=== PATIENT | female | born 1970 | race Caucasian/White ===

== ENCOUNTER → 2017-01-05 | Outpatient (CLI) | payer OTHER ==
[~2017-01-05] MED LIST: ASEN1SUB SL; BUPR-79 PO; DOXY100T; GABA-1218 PO; LAMO150T32 PO; SNG10 PO; SPIR50TA2 PO
[2017-01-05 11:24] LABS: BLOOD UREA NITROGEN 7 mg/dl (7-18); CALCIUM 8.7 mg/dl (8.5-10.1); CARBON DIOXIDE 28 mmol/L (21-32); CHLORIDE 106 mmol/L (98-107); CREATININE 0.73 mg/dl (0.60-1.20); GLUCOSE 86 mg/dl (70-99); POTASSIUM 4.2 mmol/L (3.5-5.1); SODIUM 141 mmol/L (136-145)
== END | disposition home or self-care (01) ==
LOC: C.LAB 09:58
PROVIDERS: ATTEND Family Medicine
DX: L70.9 Acne, unspecified (principal); R30.0 Dysuria

== ENCOUNTER → 2017-12-24 | Outpatient (CLI) | payer OTHER ==
[~2017-12-24] MED LIST changes: +LAMO150T PO; -LAMO150T32 PO
== END | disposition home or self-care (01) ==
LOC: C.LABSPEC 17:09
PROVIDERS: ATTEND Physician Assistant
DX: R10.2 Pelvic and perineal pain (principal)

== ENCOUNTER 2019-02-06 07:16 | Observation (INO) ==
--- NOTE | 2019-01-12 08:59 | Anesthesiology Consultation ---
Date of Service January 12, 2019 History Surgery Operation Date: 02/06/19 07:30 Proposed Procedures p Robotic Total Laparoscopy Hysterectomy - Carlos Caballero MD Height/Weight Height: 5 ft 4.5 in Weight: 79.379 kg Allergies Allergy/AdvReac Type Severity Reaction Status Date / Time No Known Allergies Allergy Unknown Verified 12/23/18 16:25 Medications Home Medications Medication Instructions Recorded Confirmed Last Taken albuterol sulfate 1 puff INHALATION Q6H PRN 12/23/18 12/23/18 Unknown clonazepam [Klonopin] 0.5 mg PO TID PRN 12/23/18 12/23/18 Unknown doxycycline hyclate 100 mg PO BID 12/23/18 12/23/18 Unknown lamotrigine 200 mg PO HS 12/23/18 12/23/18 Unknown montelukast 10 mg PO PM 12/23/18 12/23/18 Unknown ranitidine HCl 150 mg PO BID 12/23/18 12/23/18 Unknown valacyclovir 500 mg PO HS 12/23/18 12/23/18 Unknown Past Medical History Medical History Anxiety Bipolar disorder Cardiac murmur NO PROBLEMS Chiari malformation TYPE 1 S/P REPAIR (2006); SUBSEQUENT LIMITED NECK EXTENSION GERD (gastroesophageal reflux disease) HSV-2 infection Post traumatic stress disorder Past Family History Family History Other No pertinent family history Past Surgical History Surgical History History of bilateral tubal ligation History of section X1 History of craniotomy POSTERIOR FOSSA CRANIECTOMY, C1 LAMINECTOMY, DYRAPLASTY, MICRODISSECTION, R/T CHIARI MALFORMATION (2006) History of laparoscopy Nausea and vomiting after administration of anesthetic agent Social History Smoking Status: Current every day smoker tobacco type: cigarettes Smoking cigarettes per day: 5-6 CIG DAILY Do You Dip or Chew Tobacco: No Hx Alcohol Use: Yes Alcohol type: beer and wine alcohol intake frequency: 0-2 drinks per day Hx Substance Use: No substance use type: does not use
--- NOTE | 2019-01-12 15:58 | Anesthesiology Consultation ---
Date of Service January 12, 2019 Assessment & Plan (1) Encounter for pre-operative examination: - Check test AM DOS - Possible difficult intubation 2/2 decreased cervical extension s/p Chiari Malformation repair (2006). Chart Review Chart Review: Acceptable Risk for Surgery and Patient seen in Pre Admission Testing Teaching & Discussion Pre-Anesthesia Teaching/Discussion Notes: Instructed NPO after midnight before surgery,except medications with 15 cc of water. Medication instructions provided according to the PAT guidelines. History Surgery Operation Date: 02/06/19 07:30 Proposed Procedures p Robotic Total Laparoscopy Hysterectomy - Carlos Caballero MD Height/Weight Height: 5 ft 4.5 in Weight: 81.1 kg Allergies Allergy/AdvReac Type Severity Reaction Status Date / Time No Known Allergies Allergy Unknown Verified 12/23/18 16:25 Medications Home Medications Medication Instructions Recorded Confirmed Last Taken albuterol sulfate 1 puff INHALATION Q6H PRN 12/23/18 12/23/18 Unknown clonazepam [Klonopin] 0.5 mg PO TID PRN 12/23/18 12/23/18 Unknown doxycycline hyclate 100 mg PO BID 12/23/18 12/23/18 Unknown lamotrigine 200 mg PO HS 12/23/18 12/23/18 Unknown montelukast 10 mg PO PM 12/23/18 12/23/18 Unknown ranitidine HCl 150 mg PO BID 12/23/18 12/23/18 Unknown valacyclovir 500 mg PO HS 12/23/18 12/23/18 Unknown Past Medical History Medical History Acne ON DOXYCYCLINE Anxiety Asthma EXERCISE INDUCED- RARE INHALER USE PRN Bipolar disorder Chiari malformation TYPE 1 S/P REPAIR (2006); SUBSEQUENT LIMITED NECK EXTENSION GERD (gastroesophageal reflux disease) CONTROLLED HSV-2 infection ON VALACYCLOVIR Post traumatic stress disorder Exercise / Class Metabolic Activity III < 4 Walking/Shop/Light housework Past Family History Family History Other No pertinent family history Past Surgical History Surgical History History of bilateral tubal ligation History of section X1 History of craniotomy POSTERIOR FOSSA CRANIECTOMY, C1 LAMINECTOMY, DYRAPLASTY, MICRODISSECTION, R/T CHIARI MALFORMATION (2006) History of laparoscopy Past Anesthesia History No Hx of Anesthesia Complications and No Family Hx of Anesthesia Complications History of PONV No Hx of PONV and Hx of Motion Sickness (OCCASIONAL) Social History Smoking Status: Current every day smoker tobacco type: cigarettes Smoking cigarettes per day: 5-6 CIGARETTES DAILY; INTERMITTENT USE X 20+ YEARS Do You Dip or Chew Tobacco: No Hx Alcohol Use: Yes Alcohol type: beer and wine alcohol intake frequency: a few times a week Hx Substance Use: No substance use type: does not use Review of Systems Patient denies chest pain, shortness of breath, cough, wheezing, palpitations. Physical Exam Vital Signs VITALS BP 114/79 P 74 TEMP 98.3 SP02 99%RA RESP 18 PHYSICAL Decreased cervical extension s/p cervical surgery (Chiari Malformation repair) Full TMJ range of motion. TMD 3.5 finger breaths Mallampati Score 2 Dentition: missing molars, several crowns Lungs: clear throughout to auscultation Cardiac: regular rate and rhythm, no murmurs noted Spine: normal Carotid arteries: negative bruit Extremities: no edema Testing Stress Test Date: 05/13/11 Type: exercise "Normal" stress ECHO/EKG at 105% MPHR. 10.10 METS. EF 55-60%. No significant valvular disease. Laboratory Results 01/12/19 16:18 Blood Type A Positive 01/12/19 16:18 Antibody Screen NEGATIVE 01/12/19 16:18 12/08/18 SODIUM 140 POTASSIUM 4.2 CHLORIDE 109 CO2 27 BUN 11 CREATININE 0.68 GLUCOSE 86
--- NOTE | 2019-01-12 16:15 | PAT Medication Instructions ---
Medication Instructions Date of Service January 12, 2019 Home Medications albuterol sulfate 1 puff INHALATION Q6H PRN clonazepam [Klonopin] 0.5 mg PO TID PRN doxycycline hyclate 100 mg PO BID lamotrigine 200 mg PO HS montelukast 10 mg PO PM ranitidine HCl 150 mg PO BID valacyclovir 500 mg PO HS DO NOT take the morning of surgery ranitidine HCl 150 mg PO BID Take morning of surgery With a small sip of water, OTHERWISE NOTHING TO EAT OR DRINK AFTER MIDNIGHT: albuterol sulfate 1 puff INHALATION Q6H PRN (use if needed; please bring with you to hospital day of surgery if possible) clonazepam [Klonopin] 0.5 mg PO TID PRN (if needed) doxycycline hyclate 100 mg PO BID Take evening before surgery albuterol sulfate 1 puff INHALATION Q6H PRN (if needed) clonazepam [Klonopin] 0.5 mg PO TID PRN (if needed) doxycycline hyclate 100 mg PO BID lamotrigine 200 mg PO HS montelukast 10 mg PO PM ranitidine HCl 150 mg PO BID valacyclovir 500 mg PO HS Other Notes If you have any questions please call us at [phone] or [phone] or [phone] or [phone]
[2019-01-12 16:30] LABS: Basophils # (auto) 0.01 K/uL (0-0.2); Basophils % (auto) 0.1 %; Eosinophils % (auto) 1.3 %; Hematocrit (blood only) 34.5 % (37-47); Hemoglobin 11.8 g/dL (12.0-16.0); Immature Granulocytes # (auto) 0.01 K/uL (0.00-0.02); Immature Granulocytes % (auto) 0.1 %; Lymphocytes # (auto) 2.49 K/uL (1.2-3.4); Lymphocytes % (auto) 32.1 %; Mean Corpuscular Hgb Conc 34.2 g/dL (32-36); Mean Corpuscular Volume 88.9 fL (80-100); Mean Platelet Volume 10.6 fL (7.4-10.4); Monocytes # (auto) 0.55 K/uL (0.11-0.59); Monocytes % (auto) 7.1 %; Neutrophils # (auto) 4.59 K/uL (1.4-6.5); Neutrophils % (auto) 59.3 %; Platelet Count 235 K/uL (130-400); RDW Coefficient of Variation 13.3 % (11.5-14.5); RDW Standard Deviation 43.4 fL (36.4-46.3); Red Blood Count 3.88 M/uL (4.2-5.4); White Blood Count 7.75 K/uL (4.8-10.8)
[~2019-02-06 07:16] MED LIST changes: -ASEN1SUB SL; +BUPIVACAINE 0.5 % 5 MG/1 ML MPF 30ML VIAL ONE; -BUPR-79 PO; +CEFAZOLIN 2000MG 2,000 MG/15 ML SYR IV SCH; -DOXY100T; -GABA-1218 PO; +LACTATED RINGER'S 1,000 ML IV SCH; -LAMO150T PO; +LR 15ML/HR IV SCH; +PHENAZOPYRIDINE HCL 100 MG TAB PO SCH; -SNG10 PO; -SPIR50TA2 PO
[2019-02-06] MEDS ORDERED: ROCURONIUM BROMIDE 10 MG/ML 5 ML VIAL ONE (08:00)
[2019-02-06] MEDS ORDERED: LIDOCAINE HCL 2% 2 ML VIAL/AMP(20MG/ML) INFIL ONE (08:00)
[2019-02-06] MEDS ORDERED: PROPOFOL IV EMULSION 10 MG/ML 20 ML VIAL IV ONE (08:00)
[2019-02-06] MEDS ORDERED: fentaNYL citrate 100 MCG/2 ML VIAL ONE (08:00)
[2019-02-06] MEDS ORDERED: MIDAZOLAM HCL 1 MG/ML 2ML VIAL ONE (08:00)
[2019-02-06] MEDS ORDERED: ACETAMINOPHEN 1000 MG/100 ML IV IV ONE (08:04)
[2019-02-06] MEDS ORDERED: ePHEDrine sulfate 50 MG/ML AMP IV PRN (08:54)
[2019-02-06] MEDS ORDERED: ATROPINE SULFATE 0.1 MG/ML 10ML SYR IV PRN (08:54)
--- NOTE | 2019-02-06 08:55 | History & Physical Bridge Note ---
Date of Service February 06, 2019 History & Physical Bridge Note I have examined the patient, reviewed the History & Physical and in the interval since the performance of the History & Physical I have noted the following changes of clinical significance: no changes noted
[2019-02-06] MEDS ORDERED: HYDROmorphone INJ 2 MG/ML SYR/VIAL ONE (10:04)
[2019-02-06] MEDS ORDERED: ONDANSETRON INJ 2 MG/ML 2 ML VIAL ONE (10:08)
[2019-02-06] MEDS ORDERED: DEXAMETHASONE SOD INJ 4 MG/ML VIAL ONE (10:08)
[2019-02-06] MEDS ORDERED: ALBUMIN HUMAN 5% 12.5 GM/250 ML VIAL IV ONE (10:58)
[2019-02-06] MEDS ORDERED: TISSEEL FIBRIN SEALANT 10ML TOP ONE (11:26)
[2019-02-06] MEDS ORDERED: GLYCOPYRROLATE 0.2 MG/ML VIAL ONE (11:51)
[2019-02-06] MEDS ORDERED: NEOSTIGMINE METHYLSULFATE 5 MG/5 ML SYR ONE ×2 (11:51)
[2019-02-06] MEDS ORDERED: SIMETHICONE 80 MG CHEW PO PRN (11:57)
[2019-02-06] MEDS ORDERED: PROMETHAZINE HCL 12.5 MG in SODIUM CHLORIDE 0.9% 50 ML IV PRN (11:57)
[2019-02-06] MEDS ORDERED: ACETAMINOPHEN 325 MG TAB PO PRN (11:57)
[2019-02-06] MEDS ORDERED: ONDANSETRON INJ 2 MG/ML 2 ML VIAL IV PRN (11:57)
[2019-02-06] MEDS ORDERED: KETOROLAC 30 MG/ML VIAL IV PRN (11:57)
[2019-02-06] MEDS ORDERED: BISACODYL 10 MG SUPP PR PRN (11:57)
--- NOTE | 2019-02-06 12:00 | Post Operative Brief Note ---
Immediate Post Op Note v1 Date of Surgery February 06, 2019 Pre & Post Diagnosis Operation Date: 02/06/19 08:55 Pre-Op Diagnosis: Abnormal Uterine Bleeding Post-Op Diagnosis: Abnormal Uterine Bleeding Procedure Operation Date: 02/06/19 08:55 Actual Procedures p Robotic Total Laparoscopy Hysterectomy, Bilateral Salpingo-oopherectomy, Cystoscopy(Bilateral) - Carlos Caballero MD Surgeon Carlos Caballero MD Hide Selector None Estimated Blood Loss 550 Findings Consistent with Post-Op Diagnosis Drains Briscoe Catheter
[2019-02-06 12:24] LABS: Hematocrit (blood only) 32.3 % (37-47); Mean Platelet Volume 10.4 fL (7.4-10.4); Platelet Count 206 K/uL (130-400); RDW Coefficient of Variation 13.2 % (11.5-14.5); Red Blood Count 3.55 M/uL (4.2-5.4)
[2019-02-06 12:27] LABS: Mean Corpuscular Hgb Conc 34.1 g/dL (32-36)
[2019-02-06] MEDS ORDERED: PHENYLEPHRINE HCL 10 MG/ML VIAL ONE (12:30)
[2019-02-06] MEDS ORDERED: PROMETHAZINE HCL 6.25 MG in SODIUM CHLORIDE 0.9% 50 ML IV STA (12:58)
[2019-02-06] MEDS: HYDROmorphone INJ 1 MG/ML SYRINGE IV PRN ×2 (13:13→13:27)
--- NOTE | 2019-02-06 15:02 | Anesthesiology Progress Note ---
Date of Service February 06, 2019 Anesthesia Post Procedure Vital Signs Vital Signs: Temp Pulse Resp BP Pulse Ox 02/06/19 14:35 36.4 C L 88 16 103/66 100 02/06/19 14:25 36.4 C L 89 16 109/63 99 02/06/19 14:15 36.4 C L 89 16 110/77 99 02/06/19 14:05 36.4 C L 95 H 16 105/58 L 100 02/06/19 13:55 36.4 C L 102 H 16 105/68 99 02/06/19 13:45 36.4 C L 85 16 95/73 L 99 02/06/19 13:35 89 16 98/68 L 97 02/06/19 13:25 84 15 105/66 99 02/06/19 13:15 86 13 118/64 97 02/06/19 13:05 36.4 C L 82 16 108/73 100 02/06/19 12:55 76 19 118/68 97 02/06/19 12:45 75 14 114/59 L 100 02/06/19 12:35 79 11 L 86/63 L 99 02/06/19 12:25 72 9 L 97/60 L 100 02/06/19 12:18 36.5 C 63 20 89/48 L 98 02/06/19 07:44 36.8 C 85 16 123/75 97 Pain Intensity Pelvic: Pain Intensity: 2 Transfer of Care Handoff Completed per policy Notes Mental Status: alert / awake / arousable Patient Amnestic to Procedure: Yes Nausea / Vomiting: adequately controlled Pain: adequately controlled Airway Patency, RR, SpO2: stable & adequate BP & HR: stable & adequate Hydration State: stable & adequate Anesthetic Complications: no major complications apparent and Pt Satisfied with anesthetic care
[2019-02-06] MEDS: OXYCODONE/ACETAMINOPHEN 5mg/325mg TAB PO PRN ×2 (17:11→21:17)
[2019-02-06 20:01] LABS: Hematocrit (blood only) 28.5 % (37-47); Hemoglobin 9.5 g/dL (12.0-16.0); Mean Corpuscular Volume 90.8 fL (80-100); Mean Platelet Volume 10.3 fL (7.4-10.4); Platelet Count 192 K/uL (130-400); RDW Coefficient of Variation 13.2 % (11.5-14.5); RDW Standard Deviation 43.9 fL (36.4-46.3); Red Blood Count 3.14 M/uL (4.2-5.4); White Blood Count 10.16 K/uL (4.8-10.8)
[2019-02-06 20:28] LABS: Mean Corpuscular Hgb Conc 33.3 g/dL (32-36)
[2019-02-06] MEDS: DOCUSATE SODIUM 100 MG CAP PO SCH (20:41)
[2019-02-07] MEDS: OXYCODONE/ACETAMINOPHEN 5mg/325mg TAB PO PRN ×2 (01:19→07:55)
[2019-02-07 07:29] LABS: Basophils # (auto) 0.01 K/uL (0-0.2); Basophils % (auto) 0.1 %; Hematocrit (blood only) 25.8 % (37-47); Hemoglobin 8.8 g/dL (12.0-16.0); Immature Granulocytes # (auto) 0.02 K/uL (0.00-0.02); Immature Granulocytes % (auto) 0.2 %; Lymphocytes # (auto) 1.46 K/uL (1.2-3.4); Lymphocytes % (auto) 12.9 %; Mean Corpuscular Hgb Conc 34.1 g/dL (32-36); Mean Corpuscular Volume 91.5 fL (80-100); Mean Platelet Volume 10.5 fL (7.4-10.4); Monocytes % (auto) 10.6 %; Neutrophils # (auto) 8.63 K/uL (1.4-6.5); Neutrophils % (auto) 76.2 %; Platelet Count 215 K/uL (130-400); RDW Coefficient of Variation 13.3 % (11.5-14.5); RDW Standard Deviation 44.6 fL (36.4-46.3); Red Blood Count 2.82 M/uL (4.2-5.4); White Blood Count 11.32 K/uL (4.8-10.8)
[2019-02-07 07:59] LABS: BUN Creatinine Ratio 15.5 (10-20); Calcium 8.4 mg/dl (8.5-10.1); Creatinine Clr Calc Pharmacy 114.4 ml/min; Est GFR (African American) 121.7; Potassium 3.9 mmol/L (3.5-5.1)
--- NOTE | 2019-02-07 09:01 | Gynecologic Progress Note ---
Date of Service February 07, 2019 Assessment & Plan (1) Encounter for pre-operative examination: 48yo S/P TLH, BSO, cystoscopy. - Doing well today. Meeting post operative goals. Stable for discharge Subjective Doing well. Meeting postop goals Physical Exam Gastrointestinal (Abdomen): normal bowel sounds, soft, nontender, no hepatosplenomegaly Inspection/Auscultation: abdomen normal to inspection Percussion/Palpation: abdomen soft; abdomen nontender, no guarding and abdomen not rigid Results & Data Vital Signs (Past 12 Hours) Vital Signs Temp Pulse Pulse Resp BP Pulse Ox 02/07/19 03:10 36.8 C 86 18 93/55 L 94 02/06/19 23:40 36.9 C 106 H 18 104/65 97
[2019-02-07] MEDS: DOCUSATE SODIUM 100 MG CAP PO SCH (10:14)
--- NOTE | 2019-02-10 15:35 | Operative Report ---
DATE OF OPERATION: 02/06/2019 PROCEDURES: Robotic-assisted total laparoscopic hysterectomy, bilateral salpingo-oophorectomy and cystoscopy, lysis of adhesions greater than 30 minutes. SURGEON: Carlos Caballero MD PREOPERATIVE DIAGNOSES: 1. Dysfunctional uterine bleeding. 2. Chronic pelvic pain. 3. Enlarged fibroid uterus. 4. Likely adenomyosis. POSTOPERATIVE DIAGNOSES: 1. Dysfunctional uterine bleeding. 2. Chronic pelvic pain. 3. Enlarged fibroid uterus. 4. Likely adenomyosis. 5. Adhesive disease. 5. Status post procedure. ESTIMATED BLOOD LOSS: 550 mL. DRAINS: Briscoe. FLUIDS: Continuous lactated ringer. URINE OUTPUT: Approximately 400 mL via Briscoe. COMPLICATIONS: None. INDICATIONS: Ms. Fleming is a 48-year-old with a history of dysfunctional uterine bleeding in setting of an enlarged fibroid uterus as well as chronic pelvic pain. Management options were discussed in clinic. The patient opted to proceed with total laparoscopic hysterectomy, bilateral salpingo-oophorectomy and cystoscopy. FINDINGS: There was noted to be an enlarged approximately 14-15 week sized fibroid uterus. There was noted to be normal-appearing ovaries bilaterally. There was noted to be adhesive disease which was rather extensive affecting the sigmoid colon to the right adnexa. The bladder was densely had several adhesive disease of the bladder and anterior abdominal wall to the uterus. There was noted to be some descending colon adherent to the left adnexa. There was noted to be a normal-appearing intact bladder with bilateral ureteral efflux on cystoscopy at the completion of the case. DESCRIPTION OF PROCEDURE: The patient was taken to the operating room after consents were ensured, and upon presentation, she was properly identified. General endotracheal anesthesia was then obtained without difficulty. The patient was placed in dorsal lithotomy position. The patient was prepped and draped in normal sterile fashion. A preprocedural timeout was performed after which the procedure was initiated. A speculum was then placed within the vagina. Cervix visualized. Single tooth tenaculum was placed on the anterior aspect of the cervix and a VCare uterine manipulator was placed without difficulty. The Briscoe was then placed and the laparoscopic portion of the procedure was initiated. An incision was then made on the superior aspect of the umbilicus to support a 12 mm trocar. A Veress needle was inserted through the incision. Abdomen was insufflated to 15 mmHg. There was noted to be an opening pressure of 4 mmHg, symmetric abdominal rise and tympany over the liver consistent with appropriate intra-abdominal insufflation. A 12 mm optically guided trocar was then inserted through the incision. Inspection was noted to have atraumatic entry. An 8 mm incision was then made in the right and left lower quadrants and trocars were inserted through the incisions under direct visualization to note atraumatic entry. The robot was then docked. The robotic portion of the procedure was initiated. There was noted to be adhesive disease of the sigmoid colon over the right adnexa and the descending colon over the left adnexa and these were dissected out to help restore normal anatomy, the anterior abdominal wall and bladder were adhered through a plication type of appearance with multiple layers of adhesions which were gently dissected to help restore normal anatomy. The left round ligament was then identified, serially cauterized and divided, opened in the retroperitoneal space. The left IP ligament was then identified and with the ureter significantly distal to it and the IP ligament was serially cauterized and dissected and continued to the level of the previously dissected round ligament. The bladder flap was then continued anteriorly, although it was difficult to find a distinct plane on the left side for the bladder flap secondary to the adhesions as noted above. The decision was made to proceed to the right aspect of the uterus. Due to the adhesions of the sigmoid colon to the right ovary, the decision was made to remove the ovary separate from the uterus. The right round ligament was then identified, serially cauterized, divided opening the retroperitoneal space. The bladder flap was then able to be distinctly identified anteriorly and continued over to the left aspect of the bladder flap. The uteroovarian ligament was then identified, serially cauterized, dissected, continuing to the level of the round ligament. The broad ligament was then dissected with serial cauterization and scissors to the level of the uterine vessels. Bladder flap which created anteriorly was then developed to create a nice smooth plane between the vagina and cervix, and the VCare uterine manipulator was able to be distinctly identified. The right uterine vessels were then serially cauterized and dissected. The attention was then turned to the left broad ligament. There was noted to be a rather extensive inflammatory type changes with thickening of the broad ligament. There was noted to be significant inflammatory type change with thickening of the broad ligament proceeding down to the uterine vessels and the left lateral bladder flap. This was serially cauterized and dissected to the level of the uterine vessels. The bladder flap was continued to be developed on the left side, freeing the bladder from the distal vaginal and cervical junction with the VCare distinctly identified. The left uterine vessels were then serially cauterized and divided. The colpotomy was then started anteriorly, continues circumferentially clockwise around the VCare uterine manipulator. After the left aspect of the colpotomy was also noted to be somewhat thickened from inflammatory type changes and therefore very careful dissection was performed including over the uterosacral ligament on the left side. This, however, was able to be dissected down and the colpotomy was able to be continued. Upon freeing the cervix from the vagina, there was noted to be an arterial bleed associated with the right adnexa, likely that of an accessory uterine artery. This was attempted to be cauterized; however, it was not able to be grasped easily initially and therefore the scissors were removed and replaced with the graspers at which time the uterine vessel was able to be grasped and cauterized. The increased blood loss associated as noted above with a 550 mL was secondary to this bleed as it was not identified until after the colpotomy was complete. The uterus was then removed through the colpotomy. There was noted to be a slight oozing on the right aspect of the colpotomy around the 3-4 o'clock position and it was not felt that this was related to the uterine vessel which was bleeding previously. However, due to the bleeding, it was decided to close the colpotomy and then removed the right ovary. The colpotomy was closed with a V-Loc suture in continuous running stitch. There was noted to be hemostasis at the completion of the closure. The right IP ligament was then identified. The ureter was noted to be distal and the adhesions were removed freeing the ovary from the sidewall and from the adhesion of the sigmoid colon. The IP ligament proximal to the ovary was then serially cauterized and dissected freeing the right ovary. The right ovary was then placed in an EndoCatch bag for delivery through the umbilical trocar. The abdomen was then suction irrigated and the inspection of the colpotomy and the right and the left uterine vessels was watched for several minutes. The decision was made to end the robotic portion of the case. The robot was undocked. The ovary was then removed under direct visualization with the EndoCatch bag. The Tisseel was then sprayed over the raw pedicles concentrating on the vascular pedicles. The decision was made to end of the case and the trocars were removed. The fascia was reapproximated at the umbilicus with 0 Vicryl. The skin was reapproximated with 4-0 Monocryl with Dermabond placed on top. Needle, sponge and instrument counts were correct at the completion of the case. The patient was then taken to recovery room in stable condition. I attest to the content of the Intraoperative Record and any orders documented therein. Any exception s are noted below.
--- NOTE | 2019-02-18 10:00 | Discharge Summary ---
PROCEDURES WHILE ADMITTED: Robotic assisted total laparoscopic hysterectomy, bilateral salpingo-oophorectomy, and cystoscopy. HOSPITAL COURSE: The patient was admitted for the above procedure. The procedure was without complication. There was, however, noted to be an EBL of approximately 550 mL for the case and the patient was requested to stay overnight for observation. The patient did well postoperatively without any complications and was discharged home on postoperative day #1 in stable condition. The patient will be scheduled to be seen in clinic in 2 weeks and was given both verbal and written postoperative precautions.
== END 2019-02-07 10:25 | disposition home or self-care (01) ==
LOC: ASU 07:16 → 4S2 07:16